=== PATIENT | male | born 1935 | race Caucasian/White ===

== ENCOUNTER → 2016-11-26 | Outpatient (CLI) | payer MEDICARE, OTHER ==
[~2016-11-26] MED LIST: BILBERRY EXTRAC30 MG PO; DIGESTIVE ENZY1 EAC1; FISH OIL300 MG PO; FLONASE 50 MCG/16 GM NOSE; FLUNISOLIDE25 ML NOSE; GINKGO60 MG PO; IBUPROFEN100 MG PO; LEVAQUIN500 MG PO; LOPRESSOR50 MG PO; MEN'S ONE DAIL1 EACH PO; NORCO 5-325 MG1 TAB PO; PRILOSEC20 M1 PO; PROSTATE HEALT1 EACH PO; PROVENTIL OR V6.7 GM; SYMBICORT 80-10.2 GM INH; TYLENOL325 MG PO; XALATAN2.5 ML OPHTH; ZETIA10 MG PO
== END | disposition disaster alternative care site (69) ==
LOC: GRAD 07:14
DX: S90.32XA Contusion of left foot, initial encounter (principal); G62.9 Polyneuropathy, unspecified; M19.072 Primary osteoarthritis, left ankle and foot